=== PATIENT | male | born 1945 | race Hispanic/Latino ===

== ENCOUNTER → 2018-04-09 | Outpatient (CLI) | payer BC, MEDICARE | END | disposition home or self-care (01) | LOC: RAH 12:23 | PROVIDERS: ATTEND Internal Medicine | DX: N40.0 Benign prostatic hyperplasia without lower urinary tract symptoms (principal); N20.0 Calculus of kidney | CPT/HCPCS: 74176 ==

== ENCOUNTER → 2018-05-22 | Outpatient (CLI) | payer BC, MEDICARE | END | disposition home or self-care (01) | LOC: RAH 12:39 | PROVIDERS: ATTEND Internal Medicine | DX: E04.2 Nontoxic multinodular goiter (principal); E03.9 Hypothyroidism, unspecified | CPT/HCPCS: 76536 ==

== ENCOUNTER 2021-08-13 06:43 | Day surgery (SDC) | payer BC, MEDICARE ==
[2021-08-11 14:55] VITALS: BP 155/75
[2021-08-13] VITALS (21 sets, daily range): BP systolic 117–170; BP diastolic 53–80
[~2021-08-13] VITALS: Ht 170.2 cm; Wt 82.8 kg
[2021-08-13] MEDS: CEFTRIAXONE 1G VIAL IVP SCH ×2 (06:00→08:53)
[~2021-08-13 06:43] MED LIST: ASPI-1443 PO; ATOR40TA71 PO; LEVO100C4 PO; TAMS-1 PO
[2021-08-13] MEDS ORDERED: LACTATED RINGERS 1000ML 1,000 ML IV ONE (06:58)
[2021-08-13 07:27] LABS: BASOPHILS % (AUTO) 0.3 % (0.0-5.0); EOSINOPHILS % (AUTO) 1.8 % (0.0-8.0); HEMATOCRIT 43.5 % (42-54); LYMPHOCYTES % (AUTO) 38.8 % (21.0-51.0); MEAN CORPUSCULAR HEMOGLOBIN 30.2 pg (27.0-33.0); MEAN CORPUSCULAR HGB CONC 33.8 g/dL (32.0-36.0); MEAN CORPUSCULAR VOLUME 89.3 fL (79-99); NEUTROPHILS % (AUTO) 48.8 % (40.0-77.0); PLATELET COUNT (AUTO) 150 K/uL (130-400); RED BLOOD CELL COUNT(AUTO) 4.87 MIL/uL (4.50-6.20); RED CELL DISTRIBUTION WIDTH 12.5 % (11.0-15.5); WHITE BLOOD COUNT (AUTO) 6.2 K/uL (4.8-10.8)
[2021-08-13] MEDS ORDERED: LIDOCAINE PF 100MG/5ML (2%) SYRINGE 5ML ONE (08:07)
[2021-08-13] MEDS ORDERED: ROCURONIUM 10MG/1ML SYR 10 MG/ML ML ONE (08:07)
[2021-08-13] MEDS ORDERED: PROPOFOL 10 MG/ML 20ML VIAL IV ONE (08:07)
[2021-08-13] MEDS ORDERED: SUCCINYLCHOLINE 200MG/10ML SYR ONE (08:07)
[2021-08-13] MEDS ORDERED: FENTANYL CITRATE PF 50 MCG/1 ML 2ML VIAL ONE (08:08)
[2021-08-13] MEDS ORDERED: ONDANSETRON 4MG INJ ONE (08:09)
[2021-08-13] MEDS ORDERED: OPIUM/BELLADONNA ALKALOIDS 1 EACH SUPP.RECT RC ONE ×2 (09:00→09:05)
[2021-08-13] MEDS ORDERED: GLYCOPYRROLATE 1 MG/5 ML SYRINGE ONE (09:00)
[2021-08-13] MEDS ORDERED: GENTAMICIN 80 MG/NS 100 ML PB 100 ML IV ONE (09:40)
[2021-08-13] MEDS ORDERED: EPHEDRINE SULFATE 50 MG/ML AMPULE ONE (10:55)
[2021-08-13] MEDS ORDERED: NEOSTIGMINE 5MG/5ML SYR IV ONE (11:15)
[2021-08-13] MEDS ORDERED: PHENAZOPYRIDINE HCL 200 MG TABLET ONE (12:21)
== END 2021-08-13 15:30 | disposition home or self-care (01) ==
LOC: DAH 06:43
PROVIDERS: ATTEND Urology
DX: N40.1 Benign prostatic hyperplasia with lower urinary tract symptoms (principal); R39.12 Poor urinary stream; R39.14 Feeling of incomplete bladder emptying; R35.1 Nocturia; E03.9 Hypothyroidism, unspecified; Z79.899 Other long term (current) drug therapy; Z79.01 Long term (current) use of anticoagulants; Z79.890 Hormone replacement therapy; Z79.82 Long term (current) use of aspirin; Z98.890 Other specified postprocedural states
CPT/HCPCS: 36415; 52648; 85025; 87635; 93005; A4215; A4221; A4222; A4223; A4315; A4335; A4354; A4358 ×2; A4554; A4600; A4663; A5113; A6402; C9803; J0330; J0696; J1580; J2001; J2405; J2704; J2710; J3010; J3490 ×2; J7120 ×2